=== PATIENT | female | born 1960 | race Caucasian/White ===

== ENCOUNTER 2020-09-12 12:13 | Inpatient (IN) | payer OTHER ==
[~2020-09-12] VITALS: Ht 167.6 cm; Wt 93.4 kg
[2020-09-12 12:53] LABS: BASOPHILS ABSOLUTE AUTO 0.08 K/mm3 (0.00-0.23); BASOPHILS PERCENT AUTO 1 % (0-2); EOSINOPHILS ABSOLUTE AUTO 0.21 K/mm3 (0.00-0.68); EOSINOPHILS PERCENT AUTO 1 % (0-6); Hematocrit 34.2 % (33.0-51.0); IMMATURE GRAN ABSOLUTE AUTO 0.12 K/mm3 (0.00-0.10); IMMATURE GRAN PERCENT AUTO 1 % (0-1); LYMPHOCYTES ABSOLUTE AUTO 2.45 K/mm3 (0.84-5.20); LYMPHOCYTES PERCENT AUTO 16 % (21-46); MONOCYTES ABSOLUTE AUTO 1.88 K/mm3 (0.16-1.47); MONOCYTES PERCENT AUTO 13 % (4-13); Mean Corpuscular HGB 27.4 pg (26.0-34.0); Mean Corpuscular HGB Conc 32.2 g/dL (31.5-36.5); Mean Corpuscular Volume 85 fL (80-100); Mean Platelet Volume 10.2 fL (9.1-12.4); NEUTROPHILS ABSOLUTE AUTO 10.35 K/mm3 (1.96-9.15); NEUTROPHILS PERCENT AUTO 69 % (41-73); Platelet Count 362 K/mm3 (150-400); RDW Coefficient Variation 14.2 % (11.7-14.2); RDW Standard Deviation 44.8 fL (35.1-46.3); Red Blood Cell Count 4.01 M/mm3 (3.80-5.20); White Blood Cell Count 15.09 K/mm3 (4.00-11.30)
[2020-09-12 13:08] LABS: Alanine Aminotransfer (ALT/SGP 30 U/L (12-78); Albumin, Blood 2.3 g/dL (3.4-5.0); Albumin/Globulin Ratio 0.4 (0.8-1.8); Alk Phos 98 U/L (50-136); Anion Gap 5 mmol/L (6-16); Aspartate Aminotrans (AST/SGOT 22 U/L (12-37); Bilirubin, Total 0.4 mg/dL (0.1-1.0); Blood Urea Nitrogen 10 mg/dL (8-24); Bun/Creatinine Ratio 16.6 (12.0-20.0); CO2, Blood 26 mmol/L (21-32); Calcium, Blood 8.3 mg/dL (8.5-10.1); Chloride, Blood 108 mmol/L (98-108); Globulin, Blood 5.7 g/dL (2.2-4.0); Glomerular Filtration Rate >60 (60-); Glucose, Blood 92 mg/dL (70-99); Potassium, Blood 3.9 mmol/L (3.5-5.5); Sodium, Blood 139 mmol/L (136-145)
[2020-09-12] MEDS ORDERED: GLUCOPHAGE1000 M1 PO (14:46)
[2020-09-12] MEDS ORDERED: NOVOLOG FL100 UNIT/3 SC (14:48)
[2020-09-12] MEDS ORDERED: INSULANPEN SC (14:48)
[2020-09-12] MEDS ORDERED: ASPI325EC PO (14:53)
[2020-09-12] MEDS ORDERED: FISH OIL 1,2001 EAC7 PO (14:54)
--- NOTE | 2020-09-12 19:24 | NUR ---
RECEIVED PT FROM ED ALERT AND ORIENTED X4 WITH IV ABT RUNNING. PT AMBULATES WITHOUT ASSISTANCE, IS CONT AND MADE NO COMPLAINTS OF PAIN OR SOB AT THE TIME. PT WAS FEBRILE AND TREATED PER EMAR. FOOT ULCERS ON LEFT 4TH DIG AND R 2ND DIG. PT TO BE NPO AFTER MIDNIGHT. WOUND PICTURES TAKEN AND PLACED IN CART. BED IN LOW POSITION AND CALL LIGHT WITHIN REACH. STAFF WILL CONT TO MONITOR.
[2020-09-13 05:11] LABS: BASOPHILS PERCENT AUTO 1 % (0-2); EOSINOPHILS ABSOLUTE AUTO 0.19 K/mm3 (0.00-0.68); EOSINOPHILS PERCENT AUTO 1 % (0-6); Hematocrit 32.8 % (33.0-51.0); Hemoglobin 10.5 g/dL (11.5-16.0); IMMATURE GRAN ABSOLUTE AUTO 0.25 K/mm3 (0.00-0.10); IMMATURE GRAN PERCENT AUTO 2 % (0-1); LYMPHOCYTES ABSOLUTE AUTO 1.64 K/mm3 (0.84-5.20); LYMPHOCYTES PERCENT AUTO 12 % (21-46); MONOCYTES ABSOLUTE AUTO 1.46 K/mm3 (0.16-1.47); MONOCYTES PERCENT AUTO 10 % (4-13); Mean Corpuscular HGB 27.3 pg (26.0-34.0); Mean Corpuscular Volume 85 fL (80-100); Mean Platelet Volume 10.5 fL (9.1-12.4); NEUTROPHILS ABSOLUTE AUTO 10.46 K/mm3 (1.96-9.15); NEUTROPHILS PERCENT AUTO 74 % (41-73); Platelet Count 304 K/mm3 (150-400); RDW Coefficient Variation 14.5 % (11.7-14.2); Red Blood Cell Count 3.85 M/mm3 (3.80-5.20)
[2020-09-13 05:34] LABS: Alanine Aminotransfer (ALT/SGP 34 U/L (12-78); Albumin/Globulin Ratio 0.4 (0.8-1.8); Alk Phos 105 U/L (50-136); Anion Gap 5 mmol/L (6-16); Aspartate Aminotrans (AST/SGOT 26 U/L (12-37); Bilirubin, Total 0.4 mg/dL (0.1-1.0); Blood Urea Nitrogen 12 mg/dL (8-24); Bun/Creatinine Ratio 13.9 (12.0-20.0); CO2, Blood 24 mmol/L (21-32); Calcium, Blood 7.8 mg/dL (8.5-10.1); Chloride, Blood 108 mmol/L (98-108); Creatinine, Blood 0.87 mg/dL (0.40-1.00); Globulin, Blood 5.3 g/dL (2.2-4.0); Glomerular Filtration Rate >60 (60-); Glucose, Blood 241 mg/dL (70-99); Potassium, Blood 4.1 mmol/L (3.5-5.5); Sodium, Blood 137 mmol/L (136-145); Total Protein, Blood 7.3 g/dL (6.4-8.2)
--- NOTE | 2020-09-13 06:26 | NUR ---
SHIFT SUMMARY PATIENT ALERT AND ORIENTED. HAD NO COMPLAINTS OF PAIN OR SHORTNESS OF BREATH. DID NOT GET MUCH SLEEP SHE IS QUITE ANXIOUS ABOUT HER SURGERY TODAY. NO ACUTE ISSUES NOTED. IV PATENT AND INFUSING. BED IN LOWEST POSITION WITH WHEELS LOCKED. CALL LIGHT WITHIN REACH. REPORT GIVEN TO ONCOMING RN.
--- NOTE | 2020-09-13 12:23 | NUR ---
Spiritual care visit conducted. Patient immediately tells me about the upcoming amputation she will have performed and the stress and depression she is feeling over it. We talk about grief, spiritual beliefs, family dynamics and her new job. I provide therapeutic listening, grief support, spiritual guidance and prayer. Patient responds well and shows signs of catharsis and increased peace. I will continue to remain available to patient and family.
--- NOTE | 2020-09-13 13:37 | NUR ---
PT TO SDS FROM [facility] VIA ROSS. NPO SINCE 2099 LAST NOC. History, Chart, Medications and Allergies reviewed before start of procedure. Lungs clear T/O to Auscultation. + VOID. CHEM BG 213. SECOND IV PLACED s DIFFICULTY. ALL BELONGINGS LEFT IN ROOM.
--- NOTE | 2020-09-13 14:36 | NUR ---
09/13/20 1436 Aarti Saleh PATIENT ON SCHEDULED ANTIBIOTICS
[2020-09-13 16:35] LABS: Vancomycin, Trough 15.2 ug/mL (5.0-10.0)
--- NOTE | 2020-09-13 18:54 | NUR ---
SHIFT SUMMARY PT IS AO. PT DENIES PAIN, N/V SOB. PT WAS INDEPENDENT BUT AFTER PROCEDURE IS ONE ASSIST. PT APPETITE IS GOOD FOR DINNER. PT HAD RIGHT TOE AMPUTATION TODAY AND IS TOLERATING PROCEDURE WELL. PLAN IS TO MONITOR HEALING AND STATUS. PT IS NOW ON 2 L O2 POST-OP. PT IS IN BED, CALL LIGHT IN REACH, LOW POSITION.
[2020-09-14 05:12] LABS: BASOPHILS PERCENT AUTO 1 % (0-2); EOSINOPHILS ABSOLUTE AUTO 0.03 K/mm3 (0.00-0.68); EOSINOPHILS PERCENT AUTO 0 % (0-6); Hematocrit 34.9 % (33.0-51.0); Hemoglobin 10.4 g/dL (11.5-16.0); IMMATURE GRAN ABSOLUTE AUTO 0.12 K/mm3 (0.00-0.10); IMMATURE GRAN PERCENT AUTO 1 % (0-1); LYMPHOCYTES ABSOLUTE AUTO 1.99 K/mm3 (0.84-5.20); LYMPHOCYTES PERCENT AUTO 14 % (21-46); MONOCYTES ABSOLUTE AUTO 1.34 K/mm3 (0.16-1.47); MONOCYTES PERCENT AUTO 9 % (4-13); Mean Corpuscular HGB 26.5 pg (26.0-34.0); Mean Corpuscular HGB Conc 29.8 g/dL (31.5-36.5); Mean Corpuscular Volume 89 fL (80-100); Mean Platelet Volume 10.4 fL (9.1-12.4); NEUTROPHILS ABSOLUTE AUTO 10.82 K/mm3 (1.96-9.15); NEUTROPHILS PERCENT AUTO 75 % (41-73); Platelet Count 363 K/mm3 (150-400); RDW Coefficient Variation 14.5 % (11.7-14.2); RDW Standard Deviation 47.6 fL (35.1-46.3); Red Blood Cell Count 3.93 M/mm3 (3.80-5.20)
[2020-09-14 05:46] LABS: Anion Gap 6 mmol/L (6-16); Blood Urea Nitrogen 15 mg/dL (8-24); Bun/Creatinine Ratio 18.2 (12.0-20.0); CO2, Blood 24 mmol/L (21-32); Calcium, Blood 8.2 mg/dL (8.5-10.1); Chloride, Blood 106 mmol/L (98-108); Creatinine, Blood 0.83 mg/dL (0.40-1.00); Glomerular Filtration Rate >60 (60-); Glucose, Blood 355 mg/dL (70-99); Potassium, Blood 4.7 mmol/L (3.5-5.5); Sodium, Blood 136 mmol/L (136-145)
--- NOTE | 2020-09-14 06:45 | NUR ---
SHIFT SUMMARY- PT. S/P R FOOT 2ND TOE AMPUTATION, DRESSING C/D/I. PT. C/O PAIN 1X LAST NIGHT, MEDICATED PER EMAR WITH GOOD EFFECT. R FOOT NON-WT BEARING, PT. STAND PIVOTS TO BS W/ASSISTANCE. SLEPT T/O THE NIGHT, NO APPARENT DISTRESS NOTED. VSS. CALL LIGHT WITHIN REACH AND SIDE RAILS UPX2. WILL CONT TO MONITOR.
--- NOTE | 2020-09-14 17:09 | NUR ---
SHIFT SUMMARY PT IS AO. PT DENIES PAIN, N/V, SOB. PT IS SBA WITH FWW DUE TO NWB STATUS OF RIGHT FOOT. PT APPETITE IS GOOD. RIGHT FOOT DRESSING CHANGED BY SURGEON TODAY AND WILL STAY IN PLACE UNTIL AT LEAST WEDNESDAY. WOUND CULTURE OBTAINED BY THIS RN. PT DID NOT HAVE VISITORS THIS SHIFT. PLAN IS TO MONITOR INFECTION AND WOUND HEALING. PT IS IN BED, CALL LIGHT IN REACH, BED IN LOW POSITION.
[2020-09-15 05:25] LABS: Hematocrit 31.6 % (33.0-51.0); Hemoglobin 9.8 g/dL (11.5-16.0); Mean Corpuscular HGB 26.8 pg (26.0-34.0); Mean Corpuscular Volume 87 fL (80-100); Mean Platelet Volume 10.5 fL (9.1-12.4); NRBC ABSOLUTE 0.02 K/mm3 (0.00-0.02); NRBC Auto 0.1 /100 WBC (0.0-0.2); Platelet Count 361 K/mm3 (150-400); RDW Coefficient Variation 14.6 % (11.7-14.2); RDW Standard Deviation 46.3 fL (35.1-46.3); Red Blood Cell Count 3.65 M/mm3 (3.80-5.20)
[2020-09-15 05:46] LABS: Anion Gap 6 mmol/L (6-16); Blood Urea Nitrogen 14 mg/dL (8-24); Bun/Creatinine Ratio 16.1 (12.0-20.0); CO2, Blood 25 mmol/L (21-32); Chloride, Blood 109 mmol/L (98-108); Creatinine, Blood 0.87 mg/dL (0.40-1.00); Glomerular Filtration Rate >60 (60-); Glucose, Blood 170 mg/dL (70-99); Phosphorus, Blood 2.9 mg/dL (2.5-4.9); Potassium, Blood 3.9 mmol/L (3.5-5.5); Sodium, Blood 140 mmol/L (136-145)
--- NOTE | 2020-09-15 06:17 | NUR ---
SHIFT SUMMARY- NO ACUTE EVENTS OVERNIGHT. PT. HAD NO COMPLAINTS OF PAIN OR DISCOMFORT DURING THE NIGHT, DRESSING TO R FOOT C/D/I. AMBULATES TO BATHROOM W/WALKER INDEPENDENTLY, TOLERATING WELL. PT. ASLEEP MOST OF THE NIGHT, NO APPARENT DISTRESS NOTED. CALL LIGHT WITHIN REACH AND SIDE RAILS UPX2. WILL CONT TO MONITOR.
[2020-09-15 15:52] LABS: Vancomycin, Trough 28.9 ug/mL (5.0-10.0)
--- NOTE | 2020-09-15 18:22 | NUR ---
SHIFT SUMMARY PT IS AO AND PLEASANT. PT C/O ACHING PAIN IN RIGHT FOOT. PT DENIES N/V, SOB. PT PT WORKED WITH PT AND DID WELL. PT APPETITE IS GOOD. WOUND DRESSING C/D/I. SURGEON WILL REASSESS WOUND TOMORROW. PT DID NOT HAVE VISITORS TODAY. PT IS IN BED, CALL LIGHT IN REACH, BED IN LOW POSITION.
[2020-09-16 04:55] LABS: Hematocrit 30.6 % (33.0-51.0); Hemoglobin 9.4 g/dL (11.5-16.0); Mean Corpuscular HGB 26.7 pg (26.0-34.0); Mean Corpuscular HGB Conc 30.7 g/dL (31.5-36.5); Mean Corpuscular Volume 87 fL (80-100); Mean Platelet Volume 10.1 fL (9.1-12.4); NRBC ABSOLUTE 0.02 K/mm3 (0.00-0.02); NRBC Auto 0.2 /100 WBC (0.0-0.2); Platelet Count 344 K/mm3 (150-400); RDW Coefficient Variation 14.6 % (11.7-14.2); RDW Standard Deviation 46.8 fL (35.1-46.3); Red Blood Cell Count 3.52 M/mm3 (3.80-5.20); White Blood Cell Count 11.89 K/mm3 (4.00-11.30)
[2020-09-16 05:24] LABS: Albumin, Blood 1.9 g/dL (3.4-5.0); Anion Gap 3 mmol/L (6-16); Blood Urea Nitrogen 14 mg/dL (8-24); Bun/Creatinine Ratio 16.9 (12.0-20.0); CO2, Blood 27 mmol/L (21-32); Calcium, Blood 8.2 mg/dL (8.5-10.1); Chloride, Blood 109 mmol/L (98-108); Creatinine, Blood 0.83 mg/dL (0.40-1.00); Glomerular Filtration Rate >60 (60-); Glucose, Blood 200 mg/dL (70-99); Phosphorus, Blood 4.6 mg/dL (2.5-4.9); Sodium, Blood 139 mmol/L (136-145); Vancomycin, Random 11.4 ug/mL
--- NOTE | 2020-09-16 06:36 | NUR ---
SHIFT SUMMARY- PT. S/P R FOOT 2ND TOE AMPUTATION POD#3. HAD NO ACUTE EVENTS DURING THE NIGHT. MEDICATED FOR R FOOT PAIN 1X, REPORTED GOOD EFFECT. SLEPT T/O THE NIGHT, NO APPARENT DISTRESS NOTED. VSS. CALL LIGHT WITHIN REACH AND SIDE RAILS UPX2. WILL CONT TO MONITOR.
--- NOTE | 2020-09-16 14:18 | NUR ---
Patient immediately shares her trisha about the positive outcome from her amputation in that only one toe had to be removed. Patient was grateful to the medical team who worked hard to help her through the meddical ordeal. Patient asks for added prayer for her recovery and that she would be infection free. I gladly provide prayer and a blessing. Patient responds well and voices appreciation for the spiritual care visits during her stay.
--- NOTE | 2020-09-16 18:28 | NUR ---
A+O, sitting up talking on the phone, foot wrapped and assessed by counter hop, who asked that she receive another dose of abx, which is running currently, rm air, call light in reach, denies pain, will continue to monitor and treat until share bsr with noc nurse
--- NOTE | 2020-09-17 06:39 | NUR ---
SHIFT SUMMARY PATIENT ALERT AND ORIENTED. WAS MEDICATED PER EMAR FOR PAIN. NO COMPLAINTS OF SHORTNESS OF BREATH. PATIENT SLEPT WELL OVERNIGHT, NO ACUTE ISSUES NOTED. IV PATENT AND FLUSHED. BED IN LOWEST POSITION WITH WHEELS LOCKED. CALL LIGHT WITHIN REACH. REPORT GIVEN TO ONCOMING RN.
[2020-09-17 08:09] LABS: Hematocrit 32.5 % (33.0-51.0); Hemoglobin 10.2 g/dL (11.5-16.0); Mean Corpuscular HGB 26.8 pg (26.0-34.0); Mean Corpuscular HGB Conc 31.4 g/dL (31.5-36.5); Mean Corpuscular Volume 86 fL (80-100); Mean Platelet Volume 10.2 fL (9.1-12.4); NRBC ABSOLUTE 0.03 K/mm3 (0.00-0.02); NRBC Auto 0.3 /100 WBC (0.0-0.2); Platelet Count 383 K/mm3 (150-400); RDW Coefficient Variation 14.6 % (11.7-14.2); RDW Standard Deviation 45.1 fL (35.1-46.3); White Blood Cell Count 11.15 K/mm3 (4.00-11.30)
[2020-09-17] MEDS ORDERED: LACT PO (14:07)
[2020-09-17] MEDS ORDERED: SULTRIDS PO (14:08)
--- NOTE | 2020-09-17 16:09 | NUR ---
DISCHARGE INSTRUCTIONS COMPLETED AND DISCUSSED WITH PT EXPRESSING UNDERSTANDING. REPORTS SHE HAS AN APPT WITH DR. ROUSSEAU AND [facility] TOMORROW. TO [facility] VIA W/C TO [facility] TO TAKE HER TO [facility] FOR [facility] AND HER CAR.
== END 2020-09-17 15:42 | disposition home or self-care (01) | DRG 256 ==
LOC: ER 12:13 → MEDS 14:58 → ENPENDDIS 09-16 11:32 → MEDS 09-17 15:42
PROVIDERS: Emergency Medicine; Internal Medicine; Nurse Practitioner Acute Care; Pharmacist; Podiatrist Foot & Ankle Surgery; ADMIT Internal Medicine
PROC: 0Y6R0Z3 Detachment at Right 2nd Toe, Low, Open Approach (ICD-10-PCS; principal; 2020-09-13 12:30)
DX: E11.52 Type 2 diabetes mellitus with diabetic peripheral angiopathy with gangrene (principal); L03.115 Cellulitis of right lower limb; I96 Gangrene, not elsewhere classified; M86.172 Other acute osteomyelitis, left ankle and foot; I10 Essential (primary) hypertension; E78.1 Pure hyperglyceridemia; E66.01 Morbid (severe) obesity due to excess calories; E11.621 Type 2 diabetes mellitus with foot ulcer; L97.529 Non-pressure chronic ulcer of other part of left foot with unspecified severity; E11.65 Type 2 diabetes mellitus with hyperglycemia; E11.69 Type 2 diabetes mellitus with other specified complication; B95.61 Methicillin susceptible Staphylococcus aureus infection as the cause of diseases classified elsewhere; B95.1 Streptococcus, group B, as the cause of diseases classified elsewhere; Z68.33 Body mass index [BMI] 33.0-33.9, adult; Z85.3 Personal history of malignant neoplasm of breast; Z90.11 Acquired absence of right breast and nipple; Z98.890 Other specified postprocedural states; Z88.8 Allergy status to other drugs, medicaments and biological substances; Z79.4 Long term (current) use of insulin
CPT/HCPCS: 36415; 73620; 80048; 80053; 80069; 80202; 82947; 83036; 83605; 85025; 85027; 85651; 86141; 87040; 87070; 87075; 87077; 87147; 87186; 87205; 88305; 88311; 93005; 93010; 93925; 93971; 96365; 96375; 97116; 97161; 97165; 97530; 97535; 99285-25; A9270; J1100; J1644; J2001; J2250; J2405; J2543; J2704; J3010; J3370; J7030; J7050; J7120

== ENCOUNTER 2021-11-17 11:14 | Emergency (ER) | payer OTHER ==
[~2021-11-17] VITALS: Ht 167.6 cm; Wt 90.7 kg
[~2021-11-17 11:14] MED LIST: ASPI325EC PO; FISH OIL 1,2001 EAC7 PO; GLUCOPHAGE1000 M1 PO; INSULANPEN SC; LACT PO; NOVOLOG FL100 UNIT/3 SC; SULTRIDS PO
[2021-11-17 11:41] LABS: BASOPHILS PERCENT AUTO 1 % (0-2); EOSINOPHILS ABSOLUTE AUTO 0.31 K/mm3 (0.00-0.68); EOSINOPHILS PERCENT AUTO 2 % (0-6); Hematocrit 38.3 % (33.0-51.0); IMMATURE GRAN PERCENT AUTO 5 % (0-1); LYMPHOCYTES ABSOLUTE AUTO 2.11 K/mm3 (0.84-5.20); LYMPHOCYTES PERCENT AUTO 15 % (21-46); MONOCYTES ABSOLUTE AUTO 1.72 K/mm3 (0.16-1.47); MONOCYTES PERCENT AUTO 13 % (4-13); Mean Corpuscular HGB 27.3 pg (26.0-34.0); Mean Corpuscular HGB Conc 31.3 g/dL (31.5-36.5); Mean Corpuscular Volume 87 fL (80-100); Mean Platelet Volume 10.4 fL (9.1-12.4); NEUTROPHILS ABSOLUTE AUTO 8.84 K/mm3 (1.96-9.15); NEUTROPHILS PERCENT AUTO 64 % (41-73); Platelet Count 379 K/mm3 (150-400); RDW Coefficient Variation 14.5 % (11.7-14.2); RDW Standard Deviation 46.4 fL (35.1-46.3); White Blood Cell Count 13.78 K/mm3 (4.00-11.30)
[2021-11-17 12:00] LABS: Albumin, Blood 2.1 g/dL (3.4-5.0); Albumin/Globulin Ratio 0.4 (0.8-1.8); Bilirubin, Total 0.2 mg/dL (0.1-1.0); Bun/Creatinine Ratio 19.3 (12.0-20.0); Calcium, Blood 8.7 mg/dL (8.5-10.1); Creatinine, Blood 0.68 mg/dL (0.40-1.00); Globulin, Blood 5.1 g/dL (2.2-4.0); Potassium, Blood 4.5 mmol/L (3.5-5.5); Total Protein, Blood 7.2 g/dL (6.4-8.2)
== END 2021-11-17 13:38 | disposition home or self-care (01) ==
LOC: ER 11:14
PROVIDERS: Physician Assistant
DX: E11.621 Type 2 diabetes mellitus with foot ulcer (principal); L97.529 Non-pressure chronic ulcer of other part of left foot with unspecified severity; Z79.4 Long term (current) use of insulin; Z79.82 Long term (current) use of aspirin; Z79.899 Other long term (current) drug therapy; Z88.8 Allergy status to other drugs, medicaments and biological substances
CPT/HCPCS: 73620; 80053; 85025

== ENCOUNTER 2022-07-09 15:40 | Inpatient (IN) | payer OTHER ==
[~2022-07-09] VITALS: Ht 167.6 cm; Wt 96.0 kg
[2022-07-09 16:36] LABS: BASOPHILS ABSOLUTE AUTO 0.08 K/mm3 (0.00-0.23); BASOPHILS PERCENT AUTO 1 % (0-2); EOSINOPHILS ABSOLUTE AUTO 0.39 K/mm3 (0.00-0.68); EOSINOPHILS PERCENT AUTO 4 % (0-6); Hematocrit 43.9 % (33.0-51.0); Hemoglobin 14.1 g/dL (11.5-16.0); IMMATURE GRAN ABSOLUTE AUTO 0.09 K/mm3 (0.00-0.10); IMMATURE GRAN PERCENT AUTO 1 % (0-1); LYMPHOCYTES ABSOLUTE AUTO 2.04 K/mm3 (0.84-5.20); LYMPHOCYTES PERCENT AUTO 18 % (21-46); MONOCYTES ABSOLUTE AUTO 1.22 K/mm3 (0.16-1.47); MONOCYTES PERCENT AUTO 11 % (4-13); Mean Corpuscular HGB 26.6 pg (26.0-34.0); Mean Corpuscular HGB Conc 32.1 g/dL (31.5-36.5); Mean Corpuscular Volume 83 fL (80-100); NEUTROPHILS ABSOLUTE AUTO 7.43 K/mm3 (1.96-9.15); NEUTROPHILS PERCENT AUTO 66 % (41-73); RDW Coefficient Variation 14.2 % (11.7-14.2); RDW Standard Deviation 42.9 fL (35.1-46.3); White Blood Cell Count 11.25 K/mm3 (4.00-11.30)
[2022-07-09 17:04] LABS: Mean Platelet Volume 10.5 fL (9.1-12.4); Platelet Count 382 K/mm3 (150-400)
[2022-07-09 17:06] LABS: Albumin, Blood 2.6 g/dL (3.4-5.0); Albumin/Globulin Ratio 0.4 (0.8-1.8); Bilirubin, Total 0.2 mg/dL (0.1-1.0); Bun/Creatinine Ratio 30.6 (12.0-20.0); Calcium, Blood 9.2 mg/dL (8.5-10.1); Creatinine, Blood 0.65 mg/dL (0.40-1.00); Potassium, Blood 4.5 mmol/L (3.5-5.5); Total Protein, Blood 8.6 g/dL (6.4-8.2)
[2022-07-09 20:13] VITALS: BP 160/86
[2022-07-10] VITALS (15 sets, daily range): BP systolic 115–162; BP diastolic 56–95
--- NOTE | 2022-07-10 05:45 | NUR ---
RECIEVED PATIENT ALERT AND ORIENTED FROM THE ED, COOPERATIVE WITH CARE. SOME EDEMA NOTED TO R LEG, STEMMING FROM RLE GREAT TOE WOUND, PICTURES IN CHART. IV INFUSING NS. NPO SINCE MIDNIGHT. WILL CONT TO MONITOR.
--- NOTE | 2022-07-10 17:34 | NUR ---
SHIFT SUMMARY PTN NPO, TAKEN FOR R GREAT TOE AMPUTATION. NO REPORTS OF N/V OR PAIN, REPORTED BY [facility]. CONTINUOUS FLUIDS OF NS AT 100 ML/HR. SURGICAL SITE C/D/I, AND TO REMAIN DRY UNTIL SEEN BY DR DAVIS WHO PERFORMED AMPUTATION. CONTINUE PLAN OF CARE.
[2022-07-10 22:05] LABS: Glucose, Blood 591 mg/dL (70-99)
[2022-07-11 00:41] LABS: Glucose, Blood 596 mg/dL (70-99)
[2022-07-11 02:15] VITALS: BP 136/65
--- NOTE | 2022-07-11 05:22 | NUR ---
PATIENT IS ALERT AND ORIENTED, LABILE, HOSTILE TO STAFF AT TIMES. YELLING AND POSTURING IN HALLS STATING "YOU PEOPLE DONT KNOW WHAT YOUR ARE DOING. AT HOME I TAKE INSULIN THEN EAT CHOCOLATE BECAUSE I CAN." PATIENT DID SNACK THROUGH THE NIGHT, AND WAS NOT ACCEPTING OF NUTRITION EDUCATION. R FOOT DRESSING CDI, NO PIAN REPORTED. BLOOD SUGARS IN THE HIGH 500'S, MULTIPLE INSULINE MODIFICATIONS WERE MADE. HS LONG ACTING INCREASED TO 45 FOR THE NIGHT, WELL EXTRA SHORT ACTING WITHOUT RESOLVE. PATIENT STATES SHE USUALLY TAKES 60 UNITS OF LONG AT 1000, AND ANOTHER 60 UNITS OF LONG ACTING AT 2200, WELL PRETREATS WITH 40 UNITS SHORT ACTING PRIOR TO EACH MEAL. SHE DOES NOT CHECK BLOOD SUGARS AT HOME. HOSPITALIST MADE AWARE AND NEW INSULIN ORDERS TO COME. PIV INFUSING NS AT 100 THROUGH THE NIGHT. BRODIE IND IN ROOM AND TAKES WALKS THROUGH HALLS. WILL CONT TO MONITOR.
[2022-07-11 07:21] VITALS: BP 126/60
[2022-07-11 08:30] LABS: Vancomycin, Trough 10.9 ug/mL (5.0-10.0)
[2022-07-11 15:45] VITALS: BP 119/52
--- NOTE | 2022-07-11 16:07 | NUR ---
ARRIVAL ON FLOOR AT 1559 WITH PATIENT BRAKE HOLDER FROM PCU. IN NO APPARENT DISTRESS. C/O SLIGHT DIZZINESS WITH STANDING/WALKING WITH WALKER FROM WHEELCHAIR TO COMMODE, STATES THIS HAS BEEN HER NORMAL FOR THE PAST 4-5 DAYS.
--- NOTE | 2022-07-11 16:54 | NUR ---
PATIENT AOX4 PLEASANT AND COOPERATIVE WITH CARE TODAY. CALLS APROPRIATELY. BED IN LOW POSITION. CALL LIGHT IN REACH. WILL CONTINUE TO MONITOR.
[2022-07-11 20:30] VITALS: BP 160/76
[2022-07-12 05:15] VITALS: BP 120/59
--- NOTE | 2022-07-12 05:32 | NUR ---
PATIENT SLEPT WELL THROUGH THE NIGHT, SHOWERED, DRESSING KEPT CDI. HOME INSULINE REGIMINE CONTINUED. NO OTHER ISSUES TO REPORT.
[2022-07-12 05:55] LABS: BASOPHILS ABSOLUTE AUTO 0.06 K/mm3 (0.00-0.23); BASOPHILS PERCENT AUTO 1 % (0-2); EOSINOPHILS ABSOLUTE AUTO 0.37 K/mm3 (0.00-0.68); EOSINOPHILS PERCENT AUTO 4 % (0-6); Hematocrit 37.1 % (33.0-51.0); Hemoglobin 11.8 g/dL (11.5-16.0); IMMATURE GRAN ABSOLUTE AUTO 0.08 K/mm3 (0.00-0.10); IMMATURE GRAN PERCENT AUTO 1 % (0-1); LYMPHOCYTES ABSOLUTE AUTO 3.02 K/mm3 (0.84-5.20); LYMPHOCYTES PERCENT AUTO 30 % (21-46); MONOCYTES ABSOLUTE AUTO 0.79 K/mm3 (0.16-1.47); MONOCYTES PERCENT AUTO 8 % (4-13); Mean Corpuscular HGB 26.9 pg (26.0-34.0); Mean Corpuscular HGB Conc 31.8 g/dL (31.5-36.5); Mean Corpuscular Volume 85 fL (80-100); Mean Platelet Volume 10.2 fL (9.1-12.4); NEUTROPHILS ABSOLUTE AUTO 5.85 K/mm3 (1.96-9.15); NEUTROPHILS PERCENT AUTO 58 % (41-73); Platelet Count 374 K/mm3 (150-400); RDW Coefficient Variation 14.3 % (11.7-14.2); RDW Standard Deviation 44.1 fL (35.1-46.3); Red Blood Cell Count 4.38 M/mm3 (3.80-5.20); White Blood Cell Count 10.17 K/mm3 (4.00-11.30)
[2022-07-12 06:16] LABS: Bun/Creatinine Ratio 39.2 (12.0-20.0); Calcium, Blood 7.8 mg/dL (8.5-10.1); Creatinine, Blood 0.64 mg/dL (0.40-1.00); Potassium, Blood 4.3 mmol/L (3.5-5.5)
[2022-07-12 07:03] VITALS: BP 136/74
[2022-07-12 14:47] VITALS: BP 150/72
--- NOTE | 2022-07-12 17:35 | NUR ---
SHIFT SUMMARY NO ACUTE CHANGES DURING SHIFT.PT ALERT AND ORIENTED, CALLS APPROPRIATELY. PT REMAINS ON RA, INDEPENDENT IN ROOM AND RODRIGUEZ. BLOOD SUGARS REMAIN ELEVATED, INSULIN DOSES ADJUSTED BY MD. DRESSING CDI, TO BE EXAMINED TOMORROW BY MD. WILL CONTINUE TO MONITOR. CALL LIGHT WITHIN REACH.
[2022-07-12 20:56] VITALS: BP 180/67
[2022-07-12 22:37] VITALS: BP 165/76
[2022-07-13 02:51] VITALS: BP 182/77
--- NOTE | 2022-07-13 06:22 | NUR ---
SOMEC/O "LIGHTNING SHOOTING" IN RT ANKLE. PT DID NOT WANT PAIN MEDICATION. ENCOURAGED PT TO ELEVATE FOOT.
[2022-07-13 07:50] VITALS: BP 154/72
[2022-07-13 16:55] VITALS: BP 194/94
--- NOTE | 2022-07-13 17:44 | NUR ---
SHIFT SUMMARY NO ACUTE CHANGES DURING SHIFT. PT ALERT AND ORIENTED, CALLS APPROPRIATELY. PT REMAINS ON RA, INDEPENDENT IN ROOM. NO C/O PAIN TO FOOT. DR DAVIS TO SEE PT AND CHANGE DRESSING. PT TO FOLLOWUP IN CLINIC NEXT WEEK. WILL CONTINUE TO MONITOR. CALL LIGHT WITHIN REACH.
[2022-07-13 19:52] VITALS: BP 149/76
[2022-07-14 04:22] VITALS: BP 152/72
[2022-07-14 07:36] VITALS: BP 142/68
[2022-07-14] MEDS ORDERED: ASPI81CH PO (10:45)
[2022-07-14] MEDS ORDERED: AMOCLA875 PO (10:56)
--- NOTE | 2022-07-14 14:10 | NUR ---
PT DISCHARGED THE PT VERBALIZED UNDERSTANDING OF THE DC INSTRUCTIONS. THE PTS PRESCIPTION WAS FAXED TO THE [facility] REQUESTED. THE PT WAS REMINDED TO FOLLOW UP WITH HER PCP AND NEWS EDITOR AT THE [facility]. THE PT WAS TRANSFERED VIA WHEELCHAIR ACCOMPANIED BY [facility]. PT WAS GIVEN SOME WOUND CARE SUPPLY
--- NOTE | 2022-07-14 15:00 | NUR ---
AM ASSESSMENT I WAS PRESENT DURING AND AGREE WITH THE STUDENT ERWIN'S AM ASSESSMENT AND DOCUMENTATION ON THIS PATIENT
== END 2022-07-14 14:10 | disposition home or self-care (01) | DRG 617 ==
LOC: ER 15:40 → MEDS 19:22 → ENPENDDIS 07-14 09:57 → MEDS 07-14 14:10
PROVIDERS: Emergency Medicine; Internal Medicine; Nurse Practitioner Acute Care; Podiatrist; ADMIT Internal Medicine
PROC: 0Y6P0Z0 Detachment at Right 1st Toe, Complete, Open Approach (ICD-10-PCS; principal; 2022-07-10 14:00)
DX: E11.69 Type 2 diabetes mellitus with other specified complication (principal); E11.52 Type 2 diabetes mellitus with diabetic peripheral angiopathy with gangrene; M86.171 Other acute osteomyelitis, right ankle and foot; E11.621 Type 2 diabetes mellitus with foot ulcer; L97.514 Non-pressure chronic ulcer of other part of right foot with necrosis of bone; E11.42 Type 2 diabetes mellitus with diabetic polyneuropathy; L03.031 Cellulitis of right toe; E11.65 Type 2 diabetes mellitus with hyperglycemia; I10 Essential (primary) hypertension; E11.40 Type 2 diabetes mellitus with diabetic neuropathy, unspecified; E78.5 Hyperlipidemia, unspecified; B35.1 Tinea unguium; E11.319 Type 2 diabetes mellitus with unspecified diabetic retinopathy without macular edema; E88.09 Other disorders of plasma-protein metabolism, not elsewhere classified; L85.9 Epidermal thickening, unspecified; Z89.421 Acquired absence of other right toe(s); Z90.11 Acquired absence of right breast and nipple; Z88.6 Allergy status to analgesic agent; Z88.8 Allergy status to other drugs, medicaments and biological substances; Z79.4 Long term (current) use of insulin; Z79.82 Long term (current) use of aspirin; Z79.899 Other long term (current) drug therapy
CPT/HCPCS: 36415; 80048; 80053; 80202; 82947; 83036; 85025; 85651; 86140; 87071; 87075; 87077; 87147; 87186; 87205; 88305; 88311; 94760; 96365; 96367; 99285-25; A9270; J0692; J0696; J1100; J1815; J2001; J2250; J2405; J2704; J3010; J3370; J7030; J7050; J7120